=== PATIENT | female | born 1960 | race African-American/Black ===

== ENCOUNTER 2017-07-15 13:06 | Inpatient (IN) | payer MEDICAID ==
[~2017-07-15] VITALS: Ht 165.1 cm; Wt 99.8 kg
[~2017-07-15 13:06] MED LIST: BENAZIPRIL PO; RANI-467 PO; amlodipine PO; gabapentin PO; metformin PO; proair
[2017-07-15] MEDS ORDERED: METHYLPREDNISOLONE SOD SUCC 125 MG/2 ML VIAL IV STA (14:05)
[2017-07-15] MEDS ORDERED: ONDANSETRON HCL 4MG/2ML VIAL IV STA (14:05)
[2017-07-15] MEDS ORDERED: LIDOCAINE HCL/PF 1% 2ML VIAL ONE (14:05)
[2017-07-15] MEDS ORDERED: LEVOFLOXACIN 500MG PREMIX 100 ML IV ONE (14:15)
[2017-07-15] MEDS ORDERED: IPRATROPIUM/ALBUTEROL 0.5-3(2.5)MG/3ML NEB HHN ONE (14:15)
[2017-07-15 14:42] LABS: BG BASE EXCESS 0.8 mmol/L (-2.0-2.0); BG CARBOXYHEMOGLOBIN 0.7 % (0.5-1.5); BG FRACTION INSPIRED OXYGEN 21; BG HCO3 ACT 27.4 mmol/L (22.0-26.0); BG METHEMOGLOBIN 0.2 % (0.0-1.5); BG OXYGEN SATURATION 93.9 % (92.0-98.5); BG OXYHEMOGLOBIN 93.1 % (94.0-97.0); BG PCO2 51.9 mmHg (35.0-45.0); BG PO2 72.4 mmHg (75.0-100.0); BG SAMPLE SITE RIGHT RADIAL; BG VENT MODE ROOM AIR
[2017-07-15 14:50] LABS: BASOPHILS % 0.6 % (0.0-2.0); EOSINOPHILS % 1.7 % (0.0-5.0); HEMOGLOBIN. 11.9 g/dL (12.0-16.0); LYMPHOCYTES % 25.9 % (20.0-50.0); MEAN CORPUSCULAR HEMOGLOBIN 29.1 pg (28.0-32.0); MEAN CORPUSCULAR VOLUME 90.7 fL (81.0-99.0); MEAN PLATELET VOLUME 9.1 fl (7.4-10.4); NEUTROPHILS % 65.8 % (40.0-76.0); PLATELET 353 x1000/uL (130-400); RED BLOOD CELL COUNT 4.08 mill/uL (4.2-5.4)
[2017-07-15 15:02] LABS: D-DIMER 1.67 mg/L FEU (<0.50); INR 1.1; PARTIAL THROMBOPLASTIN TIME 28.3 sec (23.4-31.0); PROTHROMBIN TIME 11.1 sec (9.4-11.6)
[2017-07-15 15:08] LABS: CHLORIDE 102 mEq/L (98-107); CREATINE KINASE 53 IU/L (26-192); TROPONIN I < 0.02 ng/mL (0.00-0.04)
[2017-07-15] MEDS ORDERED: CLONIDINE 0.1MG TABLET PO PRN (23:00)
[2017-07-15] MEDS ORDERED: MAGNESIUM/ALUMINUM HYDROXIDE/SIMETHICONE 30ML UDC PO PRN (23:00)
[2017-07-15] MEDS ORDERED: IPRATROPIUM/ALBUTEROL 0.5-3(2.5)MG/3ML NEB INH PRN (23:00)
[2017-07-15] MEDS ORDERED: ENOXAPARIN 40MG/0.4ML SYR SUBCUT SCH (23:00)
[2017-07-15] MEDS ORDERED: DOCUSATE SODIUM 100MG CAPSULE PO PRN (23:00)
[2017-07-15] MEDS ORDERED: DIPHENHYDRAMINE 50MG/ML VIAL IV PRN (23:00)
[2017-07-15] MEDS ORDERED: HYDROCODONE/APAP 7.5/325MG 1 TAB TABLET PO PRN (23:00)
[2017-07-15] MEDS ORDERED: ONDANSETRON HCL 4MG/2ML VIAL IV PRN (23:00)
[2017-07-15] MEDS ORDERED: GUAIFENESIN 200MG/10ML SUGAR FREE UDC PO PRN (23:00)
[2017-07-15] MEDS ORDERED: LORAZEPAM 2MG/ML CPJ IV PRN (23:00)
[2017-07-15 23:58] LABS: CHLORIDE 101 mEq/L (98-107)
[2017-07-16 01:30] VITALS: BP 102/69
[2017-07-16] MEDS ORDERED: NA PHOS,M-B/NA PHOS,DI-BA ENEMA 118ML PR PRN (01:48)
[2017-07-16] MEDS ORDERED: LORAZEPAM 0.5MG TABLET PO PRN (02:00)
[2017-07-16] MEDS: MORPHINE SULFATE 2 MG/ML CPJ (NOT FOR IM USE) IV PRN ×4 (02:01→17:16)
[2017-07-16] MEDS ORDERED: DEXTROSE 50% WATER 50ML SYRINGE IV PRN (03:00)
[2017-07-16 04:00] VITALS: BP 102/57
[2017-07-16 06:13] LABS: BASOPHILS % 0.1 % (0.0-2.0); LYMPHOCYTES % 9.3 % (20.0-50.0); MEAN CORPUSCULAR VOLUME 90.1 fL (81.0-99.0); MEAN PLATELET VOLUME 9.6 fl (7.4-10.4); MONOCYTES % 0.9 % (2.0-8.0); NEUTROPHILS % 89.7 % (40.0-76.0); PLATELET 305 x1000/uL (130-400); RED BLOOD CELL COUNT 3.66 mill/uL (4.2-5.4); RED CELL DISTRIBUTION WIDTH 13.9 % (11.6-14.6)
[2017-07-16] MEDS: METHYLPREDNISOLONE SOD SUCC 125 MG/2 ML VIAL IV SCH ×2 (06:13→13:05)
[2017-07-16] MEDS: BLOOD SUGAR DIAGNOSTIC STRIP TEST SCH ×4 (06:34→21:48)
[2017-07-16 08:00] VITALS: BP 101/63
[2017-07-16 08:09] LABS: CHLORIDE 98 mEq/L (98-107)
[2017-07-16 08:20] LABS: HDL CHOLESTEROL 64 mg/dL (40-59); LDL CHOLESTEROL 88 mg/dL (5-100); TROPONIN I < 0.02 ng/mL (0.00-0.04)
[2017-07-16] MEDS: ENOXAPARIN 30MG/0.3ML SYR SUBCUT SCH ×4 (09:00→21:47)
[2017-07-16] MEDS: ACETAMINOPHEN 325MG TABLET PO PRN (09:12)
[2017-07-16] MEDS: INSULIN LISPRO 100 UNITS/ML SUBCUT SCH ×4 (09:15→21:50)
[2017-07-16 10:21] LABS: T4 FREE 0.99 ng/dL (0.76-1.46)
[2017-07-16 12:00] VITALS: BP 124/75
[2017-07-16] MEDS ORDERED: SODIUM CHLORIDE 0.9% 10ML VIAL ONE (13:47)
[2017-07-16] MEDS ORDERED: LEVOFLOXACIN 500MG PREMIX 100 ML IV SCH ×3 (15:00→20:00)
[2017-07-16 16:00] VITALS: BP 112/62
[2017-07-16 16:35] LABS: CREATINE KINASE 52 IU/L (26-192); CREATINE KINASE MB FRACTION < 0.5 ng/mL (0.5-3.6); TROPONIN I < 0.02 ng/mL (0.00-0.04)
[2017-07-16 17:53] LABS: CLARITY URINE CLEAR (CLEAR); COLOR URINE YELLOW (YELLOW); KETONES URINE NEGATIVE (NEGATIVE); LEUKOCYTE ESTERASE URINE NEGATIVE (NEGATIVE); NITRITE URINE NEGATIVE (NEGATIVE); OCCULT BLOOD URINE NEGATIVE (NEGATIVE); PROTEIN URINE NEGATIVE (NEGATIVE); SPECIFIC GRAVITY URINE 1.023 (1.005-1.030); UROBILINOGEN URINE 0.2 E.U./dL (0.2-1.0)
[2017-07-16] MEDS ORDERED: BUDESONIDE 0.5MG/2ML NEB HHN SCH (18:00)
[2017-07-16 18:07] LABS: *AMPHETAMINES SCREEN URINE NEGATIVE (NEGATIVE); *BARBITURATES SCREEN URINE NEGATIVE (NEGATIVE); *BENZODIAZEPINES SCREEN URINE NEGATIVE (NEGATIVE); *COCAINE SCREEN URINE NEGATIVE (NEGATIVE); CANNABINOID URINE SCREEN NEGATIVE (NEGATIVE); METHADONE URINE SCREEN NEGATIVE (NEGATIVE); OPIATES URINE SCREEN PRESUMTIVE POSITIVE (NEGATIVE); PHENCYCLIDINE URINE SCREEN NEGATIVE (NEGATIVE)
[2017-07-16 20:00] VITALS: BP 128/66
[2017-07-16] MEDS: METHYLPREDNISOLONE SOD SUCC 40 MG/ML VIAL IV SCH (21:41)
[2017-07-17] VITALS: BP 133/67
[2017-07-17] MEDS: MORPHINE SULFATE 2 MG/ML CPJ (NOT FOR IM USE) IV PRN ×2 (00:29→05:36)
[2017-07-17 04:00] VITALS: BP 143/93
[2017-07-17] MEDS: METHYLPREDNISOLONE SOD SUCC 40 MG/ML VIAL IV SCH (06:16)
[2017-07-17] MEDS: BLOOD SUGAR DIAGNOSTIC STRIP TEST SCH (06:17)
[2017-07-17 07:09] LABS: CREATINE KINASE MB FRACTION 0.5 ng/mL (0.5-3.6)
[2017-07-17 07:21] LABS: CREATINE KINASE MB FRACTION 0.6 ng/mL (0.5-3.6)
[2017-07-17 08:00] VITALS: BP 149/86
[2017-07-17] MEDS: ACETAMINOPHEN 325MG TABLET PO PRN (08:24)
[2017-07-17] MEDS: INSULIN LISPRO 100 UNITS/ML SUBCUT SCH (08:32)
[2017-07-17] MEDS ORDERED: VANCOMYCIN 1500MG in DEXTROSE 5% WATER 250ML IV SCH (09:00)
[2017-07-17 10:03] VITALS: BP 149/86
[2017-07-17] MEDS ORDERED: VANCOMYCIN 1 G PREMIX 200 ML IV SCH (21:00)
== END 2017-07-17 11:50 | disposition home or self-care (01) | DRG 133 ==
LOC: ER 13:20 → 6WST 17:24 → EDBEDREQ 17:27 → ENRESERV 18:42
PROVIDERS: ADMIT Internal Medicine; ATTEND Internal Medicine
DX: J96.01 Acute respiratory failure with hypoxia (principal); E87.2 Acidosis; R65.10 Systemic inflammatory response syndrome (SIRS) of non-infectious origin without acute organ dysfunction; E44.0 Moderate protein-calorie malnutrition; Z99.81 Dependence on supplemental oxygen; J44.1 Chronic obstructive pulmonary disease with (acute) exacerbation; E11.9 Type 2 diabetes mellitus without complications; J96.02 Acute respiratory failure with hypercapnia; K80.20 Calculus of gallbladder without cholecystitis without obstruction; E78.5 Hyperlipidemia, unspecified; E66.9 Obesity, unspecified; F41.9 Anxiety disorder, unspecified; I10 Essential (primary) hypertension; Z82.49 Family history of ischemic heart disease and other diseases of the circulatory system; Z80.0 Family history of malignant neoplasm of digestive organs; Z79.899 Other long term (current) drug therapy; Z88.0 Allergy status to penicillin; Z88.6 Allergy status to analgesic agent; Z88.8 Allergy status to other drugs, medicaments and biological substances; Z68.36 Body mass index [BMI] 36.0-36.9, adult
CPT/HCPCS: 36415; 36600; 71045; 78582; 80048; 80053; 80061; 80305; 81001; 82375; 82550; 82553; 82805; 82962; 83036; 83605; 83690; 83880; 84439; 84443; 84484; 85025; 85379; 85610; 85730; 87040; 87077; 93005; 93306; 93970; 94640; 94664; 96365; 96367; 96372; 96375; 99285; A4216; A9558; J1650; J1815; J1956; J2270; J2405; J2920; J2930; J3370; J3490; J7060; J7620; J7626

== ENCOUNTER 2018-01-13 13:01 | Emergency (ER) | payer MEDICAID ==
[~2018-01-13] VITALS: Ht 170.2 cm; Wt 138.0 kg
[~2018-01-13 13:01] MED LIST changes: +ALBU2.5V13 NEB; -BENAZIPRIL PO; +LEVO250T2 PO; +P20 MT; +THEOL PO; -proair
[2018-01-13 13:54] LABS: BASOPHILS % 0.4 % (0.0-2.0); EOSINOPHILS % 2.9 % (0.0-5.0); HEMATOCRIT. 34.3 % (36.0-48.0); HEMOGLOBIN. 11.4 g/dL (12.0-16.0); LYMPHOCYTES % 34.1 % (20.0-50.0); MEAN CORPUSCULAR HEMOGLOBIN 30.2 pg (28.0-32.0); MEAN CORPUSCULAR VOLUME 90.9 fL (81.0-99.0); MEAN PLATELET VOLUME 8.8 fl (7.4-10.4); MONOCYTES % 7.5 % (2.0-8.0); NEUTROPHILS % 55.1 % (40.0-76.0); PLATELET 342 x1000/uL (130-400); RED BLOOD CELL COUNT 3.77 mill/uL (4.2-5.4); RED CELL DISTRIBUTION WIDTH 13.3 % (11.6-14.6)
[2018-01-13 13:59] LABS: CHLORIDE 102 mEq/L (98-107); PROTHROMBIN TIME 10.3 sec (9.4-11.6)
[2018-01-13 14:04] LABS: ETHANOL BLOOD < 10 mg/dL
[2018-01-13] MEDS ORDERED: ALTEPLASE 100MG/VIAL IV STA (14:47)
[2018-01-13] MEDS ORDERED: ALTEPLASE 81 MG in BAG 1 EACH IV STA (14:47)
[2018-01-13] MEDS ORDERED: IOHEXOL-350 100 ML BOTTLE ONE (14:58)
[2018-01-13] MEDS ORDERED: METOPROLOL TARTRATE 5MG/5ML VIAL IV ONE (15:00)
[2018-01-13] MEDS ORDERED: MORPHINE SULFATE 4 MG/ML CPJ (NOT FOR IM USE) IV STA (16:11)
[2018-01-13] MEDS ORDERED: ONDANSETRON HCL 4MG/2ML VIAL IV STA (16:11)
[2018-01-13 16:20] VITALS: BP 145/92
== END 2018-01-13 17:38 ==
LOC: ER 13:11
DX: I63.9 Cerebral infarction, unspecified (principal); E11.9 Type 2 diabetes mellitus without complications; I10 Essential (primary) hypertension; G89.29 Other chronic pain; M54.9 Dorsalgia, unspecified; J44.9 Chronic obstructive pulmonary disease, unspecified; R00.0 Tachycardia, unspecified; Z98.890 Other specified postprocedural states; Z79.84 Long term (current) use of oral hypoglycemic drugs; Z88.6 Allergy status to analgesic agent; Z88.3 Allergy status to other anti-infective agents; Z88.0 Allergy status to penicillin
CPT/HCPCS: 36415; 70450; 70496; 70498; 71045; 80053; 82962; 84484; 85025; 85610; 93005; 99285; G0482; J2270; J2997; J3490; Q9967

== ENCOUNTER 2019-08-11 00:57 | Inpatient (IN) | payer MEDICAID ==
[~2019-08-11] VITALS: Ht 170.2 cm; Wt 159.7 kg
[2019-08-11] VITALS (8 sets, daily range): BP systolic 128–158; BP diastolic 62–106
[~2019-08-11 00:57] MED LIST changes: -RANI-467 PO; +RANI-645 PO
[2019-08-11] MEDS ORDERED: MAGNESIUM 2 G PREMIX 50 ML IV STA (01:11)
[2019-08-11] MEDS ORDERED: IPRATROPIUM BROMIDE (0.02%) 0.5MG/2.5ML NEB HHN STA (01:11)
[2019-08-11] MEDS ORDERED: ALBUTEROL (0.083%) 2.5MG/3ML NEB HHN STA (01:11)
[2019-08-11] MEDS ORDERED: METHYLPREDNISOLONE SOD SUCC 125 MG/2 ML VIAL IV STA (01:11)
[2019-08-11 01:53] LABS: CHLORIDE 101 mEq/L (98-107)
[2019-08-11 02:30] LABS: HEMATOCRIT 35.7 % (36.0-48.0); HEMOGLOBIN 11.9 g/dL (12.0-16.0); MEAN CORPUSCULAR HEMOGLOBIN 30.1 pg (28.0-32.0); MEAN CORPUSCULAR VOLUME 90.5 fL (81.0-99.0); PLATELET 309 x1000/uL (130-400); RED BLOOD CELL COUNT 3.95 mill/uL (4.2-5.4); RED CELL DISTRIBUTION WIDTH 13.5 % (11.6-14.6)
[2019-08-11] MEDS: HYDROCODONE/ACETAMINOPHEN 10/325MG TABLET PO PRN ×3 (09:01→23:40)
[2019-08-11 09:18] LABS: BG BILEVEL POS AIRWAY PRESSURE 15/5; BG CARBOXYHEMOGLOBIN 0.3 % (0.5-1.5); BG DEOXYHEMOGLOBIN 1.1 % (0.0-5.0); BG HCO3 ACT 24.1 mmol/L (22.0-26.0); BG METHEMOGLOBIN 0.4 % (0.0-1.5); BG OXYGEN SATURATION 98.9 % (92.0-98.5); BG OXYHEMOGLOBIN 98.2 % (94.0-97.0); BG PCO2 52.3 mmHg (35.0-45.0); BG PH 7.282 (7.350-7.450); BG SAMPLE SITE RIGHT RADIAL; BG TOTAL HEMOGLOBIN 12.6 g/dL (12.0-18.0); BG VENT MODE MASK - BIPAP; BG VENT RATE 16 set
[2019-08-11] MEDS ORDERED: DEXTROSE 50% WATER 50ML SYRINGE IV PRN (09:30)
[2019-08-11] MEDS ORDERED: IPRATROPIUM BROMIDE (0.02%) 0.5MG/2.5ML NEB HHN PRN (09:30)
[2019-08-11] MEDS ORDERED: ACETAMINOPHEN 325MG TABLET PO PRN (09:30)
[2019-08-11] MEDS ORDERED: PNEUMOCOCCAL 23-VAL P-SAC VAC 0.5 ML IM ONE (10:00)
[2019-08-11] MEDS ORDERED: INFLUENZA VIRUS VACCINE(AFLURIA) 0.5ML SYR IM ONE (10:00)
[2019-08-11] MEDS: METHYLPREDNISOLONE SOD SUCC 40 MG/ML VIAL IV SCH ×3 (10:22→21:16)
[2019-08-11] MEDS: AMLODIPINE 5MG TABLET PO SCH ×2 (10:23→20:47)
[2019-08-11] MEDS ORDERED: HYDROCODONE/ACETAMINOPHEN 5/325MG TABLET PO PRN (11:45)
[2019-08-11] MEDS ORDERED: HYDROCODONE/ACETAMINOPHEN 5/325MG TABLET PO NR (11:45)
[2019-08-11] MEDS: BLOOD SUGAR DIAGNOSTIC STRIP TEST SCH ×3 (12:43→20:45)
[2019-08-11] MEDS: INSULIN LISPRO 100 UNITS/ML SUBCUT SCH ×3 (12:57→20:45)
[2019-08-11] MEDS: ALPRAZOLAM 0.5 MG TABLET PO PRN ×2 (15:31→23:45)
[2019-08-11] MEDS: LEVOFLOXACIN 500MG PREMIX 100 ML IV SCH (15:40)
[2019-08-11] MEDS: PANTOPRAZOLE SODIUM 40 MG/VIAL IV SCH (15:49)
[2019-08-11] MEDS: IPRATROPIUM/ALBUTEROL 0.5-3(2.5)MG/3ML NEB HHN SCH ×2 (16:50→21:35)
[2019-08-11] MEDS: FLUTICASONE PROPIONATE 50MCG/SPRAY BOTTLE BOTHNSTRLS SCH (20:46)
[2019-08-11] MEDS: ONDANSETRON HCL 4MG/2ML INJ IV PRN (20:46)
[2019-08-11] MEDS: THEOPHYLLINE ANHYDROUS 80 MG/15 ML 120ML PO SCH (21:13)
[2019-08-11] MEDS: INSULIN GLARGINE UD 100 UNITS/ML SYR SUBCUT SCH (21:18)
[2019-08-12] VITALS (12 sets, daily range): BP systolic 132–172; BP diastolic 70–112
[2019-08-12 01:29] LABS: CLARITY URINE CLEAR (CLEAR); COLOR URINE YELLOW (YELLOW); KETONES URINE NEGATIVE (NEGATIVE); LEUKOCYTE ESTERASE URINE NEGATIVE (NEGATIVE); NITRITE URINE NEGATIVE (NEGATIVE); OCCULT BLOOD URINE NEGATIVE (NEGATIVE); PH URINE 5.5 (4.5-8.0); PROTEIN URINE NEGATIVE (NEGATIVE); SPECIFIC GRAVITY URINE 1.027 (1.005-1.030); UROBILINOGEN URINE 0.2 E.U./dL (0.2-1.0)
[2019-08-12] MEDS: ONDANSETRON HCL 4MG/2ML INJ IV PRN (01:52)
[2019-08-12 01:58] LABS: *AMPHETAMINES SCREEN URINE NEGATIVE (NEGATIVE); *BARBITURATES SCREEN URINE NEGATIVE (NEGATIVE); *BENZODIAZEPINES SCREEN URINE NEGATIVE (NEGATIVE); *COCAINE SCREEN URINE NEGATIVE (NEGATIVE)
[2019-08-12 01:59] LABS: CANNABINOID URINE SCREEN NEGATIVE (NEGATIVE); METHADONE URINE SCREEN NEGATIVE (NEGATIVE); OPIATES URINE SCREEN PRESUMTIVE POSITIVE (NEGATIVE); PHENCYCLIDINE URINE SCREEN NEGATIVE (NEGATIVE)
[2019-08-12] MEDS: IPRATROPIUM/ALBUTEROL 0.5-3(2.5)MG/3ML NEB HHN SCH ×3 (03:08→13:08)
[2019-08-12] MEDS: THEOPHYLLINE ANHYDROUS 80 MG/15 ML 120ML PO SCH ×3 (06:00→21:19)
[2019-08-12] MEDS: METHYLPREDNISOLONE SOD SUCC 40 MG/ML VIAL IV SCH ×3 (06:32→21:18)
[2019-08-12 07:17] LABS: BASOPHILS % 0.4 % (0.0-2.0); HEMATOCRIT. 35.2 % (36.0-48.0); HEMOGLOBIN. 11.5 g/dL (12.0-16.0); LYMPHOCYTES % 7.6 % (20.0-50.0); MEAN CORPUSCULAR HEMOGLOBIN 29.7 pg (28.0-32.0); MEAN CORPUSCULAR VOLUME 90.8 fL (81.0-99.0); MEAN PLATELET VOLUME 9.3 fl (7.4-10.4); MONOCYTES % 3.2 % (2.0-8.0); NEUTROPHILS % 88.8 % (40.0-76.0); PLATELET 304 x1000/uL (130-400); RED BLOOD CELL COUNT 3.88 mill/uL (4.2-5.4); RED CELL DISTRIBUTION WIDTH 13.3 % (11.6-14.6)
[2019-08-12] MEDS: BLOOD SUGAR DIAGNOSTIC STRIP TEST SCH ×4 (07:30→21:21)
[2019-08-12] MEDS: AMLODIPINE 5MG TABLET PO SCH ×2 (08:47→21:19)
[2019-08-12] MEDS: ALPRAZOLAM 0.5 MG TABLET PO PRN ×2 (08:47→18:02)
[2019-08-12] MEDS: FLUTICASONE PROPIONATE 50MCG/SPRAY BOTTLE BOTHNSTRLS SCH ×2 (08:47→21:18)
[2019-08-12] MEDS: HYDROCODONE/ACETAMINOPHEN 10/325MG TABLET PO PRN ×4 (08:47→23:06)
[2019-08-12] MEDS: PANTOPRAZOLE SODIUM 40 MG/VIAL IV SCH (08:47)
[2019-08-12] MEDS: INSULIN LISPRO 100 UNITS/ML SUBCUT SCH ×6 (08:49→21:20)
[2019-08-12] MEDS: INSULIN GLARGINE UD 100 UNITS/ML SYR SUBCUT SCH ×2 (08:50→21:21)
[2019-08-12 08:58] LABS: CHLORIDE 97 mEq/L (98-107)
[2019-08-12] MEDS: LEVOFLOXACIN 500MG PREMIX 100 ML IV SCH (12:27)
[2019-08-12] MEDS: DIPHENHYDRAMINE 25MG CAPSULE PO PRN (18:02)
[2019-08-12] MEDS: IPRATROPIUM BROMIDE (0.02%) 0.5MG/2.5ML NEB HHN SCH (20:27)
[2019-08-12] MEDS: GUAIFENESIN 600MG ER TABLET PO SCH (21:19)
[2019-08-13] VITALS (12 sets, daily range): BP systolic 131–170; BP diastolic 82–123
[2019-08-13] MEDS: CLONIDINE 0.1MG TABLET PO PRN (01:14)
[2019-08-13] MEDS: MORPHINE SULFATE 2 MG/ML CPJ (NOT FOR IM USE) IV PRN ×5 (01:15→21:53)
[2019-08-13] MEDS: IPRATROPIUM BROMIDE (0.02%) 0.5MG/2.5ML NEB HHN SCH ×5 (02:14→20:23)
[2019-08-13] MEDS: DIPHENHYDRAMINE 25MG CAPSULE PO PRN (03:42)
[2019-08-13] MEDS: ALPRAZOLAM 0.5 MG TABLET PO PRN ×2 (03:42→21:28)
[2019-08-13] MEDS: THEOPHYLLINE ANHYDROUS 80 MG/15 ML 120ML PO SCH ×4 (06:00→21:36)
[2019-08-13] MEDS: METHYLPREDNISOLONE SOD SUCC 40 MG/ML VIAL IV SCH ×3 (06:38→21:30)
[2019-08-13] MEDS: BLOOD SUGAR DIAGNOSTIC STRIP TEST SCH ×4 (07:41→21:35)
[2019-08-13] MEDS: METOPROLOL TARTRATE 50MG TABLET PO SCH ×2 (08:47→21:29)
[2019-08-13] MEDS: AMLODIPINE 10MG TABLET PO SCH ×2 (08:47→21:29)
[2019-08-13] MEDS: GUAIFENESIN 600MG ER TABLET PO SCH ×2 (08:47→21:28)
[2019-08-13] MEDS: PANTOPRAZOLE SODIUM 40 MG/VIAL IV SCH (08:48)
[2019-08-13] MEDS: FLUTICASONE PROPIONATE 50MCG/SPRAY BOTTLE BOTHNSTRLS SCH ×2 (08:50→21:30)
[2019-08-13] MEDS: INSULIN LISPRO 100 UNITS/ML SUBCUT SCH ×7 (08:50→21:42)
[2019-08-13] MEDS: INSULIN GLARGINE UD 100 UNITS/ML SYR SUBCUT SCH ×2 (08:58→21:42)
[2019-08-13] MEDS: LEVOFLOXACIN 500MG PREMIX 100 ML IV SCH (11:03)
[2019-08-13] MEDS: ONDANSETRON HCL 4MG/2ML INJ IV PRN (13:05)
[2019-08-13] MEDS ORDERED: HYDROCODONE/ACETAMINOPHEN 5/325MG TABLET PO PRN (15:45)
[2019-08-14] VITALS (12 sets, daily range): BP systolic 106–166; BP diastolic 32–104
[2019-08-14] MEDS: IPRATROPIUM BROMIDE (0.02%) 0.5MG/2.5ML NEB HHN SCH ×4 (00:25→11:41)
[2019-08-14] MEDS: MORPHINE SULFATE 2 MG/ML CPJ (NOT FOR IM USE) IV PRN ×5 (01:47→22:24)
[2019-08-14] MEDS: CLONIDINE 0.1MG TABLET PO PRN (01:48)
[2019-08-14] MEDS: METHYLPREDNISOLONE SOD SUCC 40 MG/ML VIAL IV SCH (05:59)
[2019-08-14] MEDS: THEOPHYLLINE ANHYDROUS 80 MG/15 ML 120ML PO SCH ×3 (05:59→20:40)
[2019-08-14] MEDS: BLOOD SUGAR DIAGNOSTIC STRIP TEST SCH ×4 (07:30→20:40)
[2019-08-14 07:43] LABS: BASOPHILS % 0.1 % (0.0-2.0); HEMATOCRIT. 32.7 % (36.0-48.0); MEAN CORPUSCULAR HEMOGLOBIN 30.2 pg (28.0-32.0); MEAN CORPUSCULAR VOLUME 89.8 fL (81.0-99.0); MEAN PLATELET VOLUME 9.4 fl (7.4-10.4); MONOCYTES % 4.2 % (2.0-8.0); NEUTROPHILS % 84.7 % (40.0-76.0); PLATELET 332 x1000/uL (130-400); RED BLOOD CELL COUNT 3.64 mill/uL (4.2-5.4); RED CELL DISTRIBUTION WIDTH 13.2 % (11.6-14.6)
[2019-08-14] MEDS: INSULIN LISPRO 100 UNITS/ML SUBCUT SCH ×8 (08:00→20:55)
[2019-08-14 08:41] LABS: CHLORIDE 95 mEq/L (98-107)
[2019-08-14] MEDS: AMLODIPINE 10MG TABLET PO SCH ×2 (09:37→20:41)
[2019-08-14] MEDS: METOPROLOL TARTRATE 50MG TABLET PO SCH ×2 (09:38→20:41)
[2019-08-14] MEDS: GUAIFENESIN 600MG ER TABLET PO SCH ×2 (09:38→20:55)
[2019-08-14] MEDS: FLUTICASONE PROPIONATE 50MCG/SPRAY BOTTLE BOTHNSTRLS SCH (09:38)
[2019-08-14] MEDS: PANTOPRAZOLE SODIUM 40 MG/VIAL IV SCH (09:38)
[2019-08-14] MEDS: LEVOFLOXACIN 500MG PREMIX 100 ML IV SCH (10:17)
[2019-08-14] MEDS: HYDROCODONE/ACETAMINOPHEN 10/325MG TABLET PO PRN (10:19)
[2019-08-14 10:23] LABS: BG BASE EXCESS 3.2 mmol/L (-2.0-2.0); BG CARBOXYHEMOGLOBIN 0.2 % (0.5-1.5); BG FRACTION INSPIRED OXYGEN 28; BG OXYHEMOGLOBIN 95.8 % (94.0-97.0); BG PCO2 49.5 mmHg (35.0-45.0); BG PH 7.386 (7.350-7.450); BG PO2 77.3 mmHg (75.0-100.0); BG SAMPLE SITE RIGHT RADIAL; BG TOTAL HEMOGLOBIN 12.1 g/dL (12.0-18.0); BG VENT MODE NASAL CANNULA
[2019-08-14] MEDS: INSULIN GLARGINE UD 100 UNITS/ML SYR SUBCUT SCH ×2 (10:29→20:58)
[2019-08-14] MEDS ORDERED: LIDOCAINE HCL/PF 1% 2ML VIAL ONE (12:48)
[2019-08-14] MEDS ORDERED: TERBUTALINE SULFATE 1MG/ML VIAL SUBCUT NR (15:00)
[2019-08-14] MEDS: IPRATROPIUM/ALBUTEROL 0.5-3(2.5)MG/3ML NEB HHN SCH ×2 (15:56→20:06)
[2019-08-14] MEDS: AZELASTINE HCL 137MCG/SPRAY NASAL PUMP BOTHNSTRLS SCH (20:40)
[2019-08-14] MEDS: FAMOTIDINE 20MG/2ML VIAL IV SCH (20:41)
[2019-08-14] MEDS: ALPRAZOLAM 0.5 MG TABLET PO PRN (20:57)
[2019-08-15] VITALS (8 sets, daily range): BP systolic 119–151; BP diastolic 55–90
[2019-08-15] MEDS: IPRATROPIUM/ALBUTEROL 0.5-3(2.5)MG/3ML NEB HHN SCH ×7 (00:03→23:57)
[2019-08-15] MEDS: DIPHENHYDRAMINE 25MG CAPSULE PO PRN (02:13)
[2019-08-15] MEDS: MORPHINE SULFATE 2 MG/ML CPJ (NOT FOR IM USE) IV PRN ×5 (02:18→23:40)
[2019-08-15] MEDS: THEOPHYLLINE ANHYDROUS 80 MG/15 ML 120ML PO SCH ×3 (05:20→21:30)
[2019-08-15] MEDS: ALPRAZOLAM 0.5 MG TABLET PO PRN ×2 (05:20→21:30)
[2019-08-15] MEDS ORDERED: GLIPIZIDE 5MG TABLET PO SCH (07:30)
[2019-08-15] MEDS: BLOOD SUGAR DIAGNOSTIC STRIP TEST SCH ×4 (07:30→21:32)
[2019-08-15] MEDS: INSULIN LISPRO 100 UNITS/ML SUBCUT SCH ×7 (08:31→21:30)
[2019-08-15] MEDS: FAMOTIDINE 20MG/2ML VIAL IV SCH ×2 (08:33→21:31)
[2019-08-15] MEDS: PREDNISONE 20MG TABLET PO SCH (08:33)
[2019-08-15] MEDS: METOPROLOL TARTRATE 50MG TABLET PO SCH ×2 (08:34→21:31)
[2019-08-15] MEDS: GUAIFENESIN/DM 600MG/30MG ER TAB 12HR PO PRN ×3 (08:34→21:30)
[2019-08-15] MEDS: AZELASTINE HCL 137MCG/SPRAY NASAL PUMP BOTHNSTRLS SCH ×2 (08:35→21:33)
[2019-08-15] MEDS: AMLODIPINE 10MG TABLET PO SCH ×2 (08:35→21:31)
[2019-08-15] MEDS: GUAIFENESIN 600MG ER TABLET PO SCH ×2 (08:41→21:33)
[2019-08-15] MEDS: INSULIN GLARGINE UD 100 UNITS/ML SYR SUBCUT SCH ×2 (10:21→21:30)
[2019-08-15] MEDS: LEVOFLOXACIN 500MG PREMIX 100 ML IV SCH (10:22)
[2019-08-15] MEDS: GLIPIZIDE 5MG TABLET PO SCH (16:59)
[2019-08-15] MEDS: ZOLPIDEM TARTRATE 5MG TABLET PO PRN (23:39)
[2019-08-16] VITALS (10 sets, daily range): BP systolic 124–169; BP diastolic 55–109
[2019-08-16] MEDS: IPRATROPIUM/ALBUTEROL 0.5-3(2.5)MG/3ML NEB HHN SCH ×5 (04:49→21:34)
[2019-08-16] MEDS: MORPHINE SULFATE 2 MG/ML CPJ (NOT FOR IM USE) IV PRN ×4 (04:57→23:24)
[2019-08-16] MEDS: THEOPHYLLINE ANHYDROUS 80 MG/15 ML 120ML PO SCH ×3 (04:57→21:04)
[2019-08-16] MEDS: INSULIN LISPRO 100 UNITS/ML SUBCUT SCH ×7 (07:30→21:17)
[2019-08-16] MEDS: CLONIDINE 0.1MG TABLET PO PRN (07:52)
[2019-08-16] MEDS: BLOOD SUGAR DIAGNOSTIC STRIP TEST SCH ×4 (08:17→21:04)
[2019-08-16] MEDS: GUAIFENESIN 600MG ER TABLET PO SCH ×2 (09:00→21:03)
[2019-08-16] MEDS: PREDNISONE 20MG TABLET PO SCH (09:03)
[2019-08-16] MEDS: METOPROLOL TARTRATE 50MG TABLET PO SCH ×2 (09:03→21:02)
[2019-08-16] MEDS: GUAIFENESIN/DM 600MG/30MG ER TAB 12HR PO PRN ×3 (09:03→10:41)
[2019-08-16] MEDS: GLIPIZIDE 5MG TABLET PO SCH ×2 (09:03→17:12)
[2019-08-16] MEDS: AMLODIPINE 10MG TABLET PO SCH ×2 (09:04→21:02)
[2019-08-16] MEDS: AZELASTINE HCL 137MCG/SPRAY NASAL PUMP BOTHNSTRLS SCH ×2 (09:04→21:03)
[2019-08-16] MEDS: FAMOTIDINE 20MG/2ML VIAL IV SCH ×2 (09:04→21:02)
[2019-08-16] MEDS: LEVOFLOXACIN 500MG TABLET PO SCH (11:02)
[2019-08-16] MEDS: INSULIN GLARGINE UD 100 UNITS/ML SYR SUBCUT SCH ×2 (11:03→22:00)
[2019-08-16] MEDS: LOSARTAN POTASSIUM 50 MG TABLET PO SCH (12:08)
[2019-08-16] MEDS ORDERED: LACTULOSE 20G/30ML UDC PO NR (13:15)
[2019-08-16] MEDS: BUDESONIDE 0.5MG/2ML NEB HHN SCH (17:22)
[2019-08-16] MEDS: ZOLPIDEM TARTRATE 5MG TABLET PO PRN (23:21)
[2019-08-17] VITALS (9 sets, daily range): BP systolic 114–157; BP diastolic 32–104
[2019-08-17] MEDS: INSULIN GLARGINE UD 100 UNITS/ML SYR SUBCUT SCH ×4 (00:21→20:41)
[2019-08-17] MEDS: BUDESONIDE 0.5MG/2ML NEB HHN SCH ×3 (04:00→19:56)
[2019-08-17] MEDS: IPRATROPIUM/ALBUTEROL 0.5-3(2.5)MG/3ML NEB HHN SCH ×6 (04:00→19:56)
[2019-08-17] MEDS: THEOPHYLLINE ANHYDROUS 80 MG/15 ML 120ML PO SCH ×3 (06:04→20:28)
[2019-08-17] MEDS: INSULIN LISPRO 100 UNITS/ML SUBCUT SCH ×7 (07:30→20:40)
[2019-08-17] MEDS: BLOOD SUGAR DIAGNOSTIC STRIP TEST SCH ×4 (08:21→20:29)
[2019-08-17] MEDS: LOSARTAN POTASSIUM 50 MG TABLET PO SCH (08:57)
[2019-08-17] MEDS: MORPHINE SULFATE 2 MG/ML CPJ (NOT FOR IM USE) IV PRN ×3 (08:57→20:46)
[2019-08-17] MEDS: AZELASTINE HCL 137MCG/SPRAY NASAL PUMP BOTHNSTRLS SCH ×2 (08:57→20:27)
[2019-08-17] MEDS: FAMOTIDINE 20MG/2ML VIAL IV SCH ×2 (08:57→20:28)
[2019-08-17] MEDS: GUAIFENESIN 600MG ER TABLET PO SCH ×2 (08:57→20:28)
[2019-08-17] MEDS: AMLODIPINE 10MG TABLET PO SCH ×2 (08:58→20:28)
[2019-08-17] MEDS: METOPROLOL TARTRATE 50MG TABLET PO SCH ×2 (08:59→20:28)
[2019-08-17] MEDS: GLIPIZIDE 5MG TABLET PO SCH ×2 (08:59→17:00)
[2019-08-17] MEDS: LEVOFLOXACIN 500MG TABLET PO SCH (10:45)
[2019-08-17] MEDS: ONDANSETRON HCL 4MG/2ML INJ IV PRN (10:45)
[2019-08-17] MEDS ORDERED: BISACODYL 10MG SUPP PR PRN (12:00)
[2019-08-17] MEDS ORDERED: NA PHOS,M-B/NA PHOS,DI-BA ENEMA 118ML PR PRN (12:00)
[2019-08-17 15:29] LABS: BASOPHILS % 0.5 % (0.0-2.0); HEMATOCRIT. 38.9 % (36.0-48.0); HEMOGLOBIN. 12.8 g/dL (12.0-16.0); LYMPHOCYTES % 37.2 % (20.0-50.0); MEAN CORPUSCULAR VOLUME 91.1 fL (81.0-99.0); MEAN PLATELET VOLUME 9.1 fl (7.4-10.4); MONOCYTES % 5.4 % (2.0-8.0); NEUTROPHILS % 54.9 % (40.0-76.0); PLATELET 369 x1000/uL (130-400); RED BLOOD CELL COUNT 4.27 mill/uL (4.2-5.4); RED CELL DISTRIBUTION WIDTH 13.8 % (11.6-14.6)
[2019-08-17 15:48] LABS: CHLORIDE 102 mEq/L (98-107)
[2019-08-17] MEDS: DOCUSATE SODIUM 100MG CAPSULE PO SCH (17:17)
[2019-08-17] MEDS: LACTULOSE 20G/30ML UDC PO SCH ×2 (17:17→20:41)
[2019-08-17] MEDS ORDERED: MAGNESIUM/ALUMINUM HYDROXIDE/SIMETHICONE 30ML UDC PO PRN (19:00)
[2019-08-17] MEDS ORDERED: POLYETHYLENE GLYCOL 3350 (17GM) 1 DOSE PACK PO SCH (21:00)
[2019-08-17] MEDS: ZOLPIDEM TARTRATE 5MG TABLET PO PRN (23:54)
[2019-08-18] MEDS: HYDROCODONE/ACETAMINOPHEN 5/325MG TABLET PO PRN ×3 (00:34→14:35)
[2019-08-18] MEDS: IPRATROPIUM/ALBUTEROL 0.5-3(2.5)MG/3ML NEB HHN SCH ×4 (00:56→12:35)
[2019-08-18] MEDS: ONDANSETRON HCL 4MG/2ML INJ IV PRN (03:16)
[2019-08-18 04:00] VITALS: BP 96/41
[2019-08-18] MEDS: THEOPHYLLINE ANHYDROUS 80 MG/15 ML 120ML PO SCH ×2 (05:43→14:24)
[2019-08-18 08:00] VITALS: BP 136/90
[2019-08-18] MEDS: BLOOD SUGAR DIAGNOSTIC STRIP TEST SCH ×2 (08:01→13:11)
[2019-08-18] MEDS: LACTULOSE 20G/30ML UDC PO SCH ×2 (09:13→14:24)
[2019-08-18] MEDS: GUAIFENESIN/DM 600MG/30MG ER TAB 12HR PO PRN (09:13)
[2019-08-18] MEDS: GUAIFENESIN 600MG ER TABLET PO SCH (09:13)
[2019-08-18] MEDS: AMLODIPINE 10MG TABLET PO SCH (09:14)
[2019-08-18] MEDS: GLIPIZIDE 5MG TABLET PO SCH (09:15)
[2019-08-18] MEDS: METOPROLOL TARTRATE 50MG TABLET PO SCH (09:15)
[2019-08-18] MEDS: AZELASTINE HCL 137MCG/SPRAY NASAL PUMP BOTHNSTRLS SCH (09:15)
[2019-08-18] MEDS: FAMOTIDINE 20MG/2ML VIAL IV SCH (09:15)
[2019-08-18] MEDS: LOSARTAN POTASSIUM 50 MG TABLET PO SCH (09:15)
[2019-08-18] MEDS: DOCUSATE SODIUM 100MG CAPSULE PO SCH (09:16)
[2019-08-18] MEDS: INSULIN LISPRO 100 UNITS/ML SUBCUT SCH ×4 (09:17→13:00)
[2019-08-18] MEDS: INSULIN GLARGINE UD 100 UNITS/ML SYR SUBCUT SCH (09:18)
[2019-08-18] MEDS: BUDESONIDE 0.5MG/2ML NEB HHN SCH (09:43)
[2019-08-18 12:00] VITALS: BP 117/71
[2019-08-18] MEDS ORDERED: NA PHOS,M-B/NA PHOS,DI-BA ENEMA 118ML PR PRN (15:40)
[2019-08-18] MEDS ORDERED: BISACODYL 10MG SUPP PR PRN (15:45)
[2019-08-18] MEDS ORDERED: NA PHOS,M-B/NA PHOS,DI-BA ENEMA 118ML PR NR (15:45)
[2019-08-18 15:48] VITALS: BP 130/50
[2019-08-18 16:00] VITALS: BP 130/50
== END 2019-08-18 16:40 | DRG 720 ==
LOC: ER 00:57 → 5EST 04:00 → ENRESERV 07:30
PROVIDERS: ADMIT Internal Medicine; ATTEND Internal Medicine
PROC: 5A09357 Assistance with Respiratory Ventilation, Less than 24 Consecutive Hours, Continuous Positive Airway Pressure (ICD-10-PCS; principal; 2019-08-11)
PROC: 5A09357 Assistance with Respiratory Ventilation, Less than 24 Consecutive Hours, Continuous Positive Airway Pressure (ICD-10-PCS; 2019-08-12)
PROC: 5A09357 Assistance with Respiratory Ventilation, Less than 24 Consecutive Hours, Continuous Positive Airway Pressure (ICD-10-PCS; 2019-08-15)
PROC: 5A09357 Assistance with Respiratory Ventilation, Less than 24 Consecutive Hours, Continuous Positive Airway Pressure (ICD-10-PCS; 2019-08-17)
DX: A41.9 Sepsis, unspecified organism (principal); J96.21 Acute and chronic respiratory failure with hypoxia; E87.2 Acidosis; J44.1 Chronic obstructive pulmonary disease with (acute) exacerbation; E66.2 Morbid (severe) obesity with alveolar hypoventilation; J45.901 Unspecified asthma with (acute) exacerbation; G90.8 Other disorders of autonomic nervous system; K76.0 Fatty (change of) liver, not elsewhere classified; E11.9 Type 2 diabetes mellitus without complications; I10 Essential (primary) hypertension; F41.9 Anxiety disorder, unspecified; J45.909 Unspecified asthma, uncomplicated; J00 Acute nasopharyngitis [common cold]; R74.0 Nonspecific elevation of levels of transaminase and lactic acid dehydrogenase [LDH]; J06.9 Acute upper respiratory infection, unspecified; D64.9 Anemia, unspecified; G89.4 Chronic pain syndrome; M51.26 Other intervertebral disc displacement, lumbar region; Z68.43 Body mass index [BMI] 50.0-59.9, adult; Z87.891 Personal history of nicotine dependence; Z88.6 Allergy status to analgesic agent; Z88.1 Allergy status to other antibiotic agents; Z88.0 Allergy status to penicillin; Z88.8 Allergy status to other drugs, medicaments and biological substances; N39.0 Urinary tract infection, site not specified
CPT/HCPCS: 36415; 36600; 71045; 71275; 76700; 78227; 80048; 80053; 80305; 81003; 82375; 82805; 82962; 83605; 84145; 85025; 85027; 87804; 90686; 90732; 93970; 94640; 94644; 94660; 96365; 97116; 97162; 97166; 97530; 99291; A9537; C9113; J1815; J1956; J2270; J2405; J2920; J2930; J3105; J3475; J3490; J7512; J7626; Q0163